=== PATIENT | male | born 1990 | race Two or more races ===

== ENCOUNTER 2017-02-24 19:09 | Emergency (ER) | payer OTHER ==
--- NOTE | ~2017-02-24 | CR63 ---
[facility] A Service of [facility] RADIOLOGY TEXT RESULTS PATIENT: MASON CLEARY LOCATION: [facility] : [birth year] UNIT #: [id number] AGE: [address]: Karlos Zimmerman MD SEX: M ORDER DR: [id number] [address] [address] [id number] MR#: [id number] Acc #: [id number] NAME: MASON CLEARY : 1990 SEX: M STUDY DATE/TIME: 02/24/2017 19:24 UNIT: GELA ROOM: STUDY DESCRIPTION: CR Chest 2 View Attending Physician: Karlos Zimmerman M.D. Ordering Physician: Karlos Zimmerman M.D. MEDICAL IMAGING REPORT This report is preliminary unless electronic signature is present EXAM Chest 2 views 02/24/2017 INDICATIONS 26-year-old male with cough, shortness of air. Mid-chest pain for 3 days. Asthma. TECHNIQUE Two-view chest. COMPARISON STUDIES No comparisons. FINDINGS Cardiac silhouette is within normal limits. Vascularity is normal. Lungs are clear. No effusion or pneumothorax. IMPRESSION 1. Negative chest. We have no comparisons. Dictated by... Steve Patino M.D. THIS IS AN ELECTRONICALLY VERIFIED REPORT Steve Patino M.D. at 02/25/2017 2:51 PM SANDRA/angela TD: 02/25/2017 00:14 JOB #: [id number] [facility] A Service of [facility] RADIOLOGY TEXT RESULTS PATIENT: MASON CLEARY LOCATION: [facility] : [birth year] UNIT #: [id number] AGE: [address]: Karlos Zimmerman MD SEX: M ORDER DR: MEDICAL IMAGING REPORT Page 1 of 1 COPY
[2017-02-24 19:37] LABS: INFLUENZA A NEG (NEG); INFLUENZA B NEG (NEG)
== END 2017-02-24 21:35 | disposition home or self-care (01) ==
LOC: CED 19:09
PROVIDERS: Emergency Medicine
DX: J40 Bronchitis, not specified as acute or chronic (principal); I10 Essential (primary) hypertension
CPT/HCPCS: 71020; 87804; 94640; 99283